=== PATIENT | female | born 1950 | race Caucasian/White ===

== ENCOUNTER 2016-12-17 11:52 | Day surgery (SDC) | payer BC ==
[~2016-12-17] VITALS: Ht 167.6 cm; Wt 133.1 kg
[~2016-12-17 11:52] MED LIST: CEPH-375 PO; LOSA25TA5 PO; LOSA50TA6 PO; METF10002 PO; SITA50TA PO
[2016-12-17] MEDS ORDERED: LACTATED RINGERS 1,000 ML IV SCH (12:28)
[2016-12-17] MEDS ORDERED: LOVA40TA2 PO (12:30)
[2016-12-17] MEDS ORDERED: LIDOCAINE 1%, 2ML SQ PRN (12:30)
[2016-12-17] MEDS ORDERED: DIPH25CA61 PO (12:30)
[2016-12-17] MEDS ORDERED: LIDOCAINE 1%, 2ML ONE (12:37)
[2016-12-17] MEDS ORDERED: FENTANYL PF 250 MCG/5ML ONE (13:51)
[2016-12-17] MEDS ORDERED: MIDAZOLAM 1 MG/ML, 2ML ONE (13:51)
[2016-12-17] MEDS ORDERED: KETOROLAC 30 MG/1 ML ONE (14:20)
[2016-12-17] MEDS ORDERED: PROPOFOL 10 MG/ML, 20ML ONE (14:20)
[2016-12-17] MEDS ORDERED: METOPROLOL 1 MG/ML, 5ML ONE (14:20)
[2016-12-17] MEDS ORDERED: KETAMINE 10 MG/ML, 20ML ONE (14:20)
[2016-12-17] MEDS ORDERED: ROCURONIUM 10 MG/ML ONE (14:20)
[2016-12-17] MEDS ORDERED: METOCLOPRAMIDE 5 MG/ML, 2ML ONE (14:20)
[2016-12-17] MEDS ORDERED: ONDANSETRON 2MG/ML, 2ML ONE (14:20)
[2016-12-17] MEDS ORDERED: OMNIPAQUE 350 MG/ML, 50 ML BOTTLE ONE (14:30)
[2016-12-17] MEDS ORDERED: MIDAZOLAM 1 MG/ML, 2ML IV PRN (15:00)
[2016-12-17] MEDS ORDERED: hydrALAzine 20 MG/ML, 1ML IV PRN (15:00)
[2016-12-17] MEDS ORDERED: HYDROmorphone 1 MG/ML, 1ML IV PRN (15:00)
[2016-12-17] MEDS ORDERED: LABETALOL 5MG/ML, 20ML IV PRN (15:00)
[2016-12-17] MEDS ORDERED: MEPERIDINE/PF 25MG/0.5ML IVPush PRN (15:00)
[2016-12-17] MEDS ORDERED: ACETAMINOPHEN 325 MG TABLET PO PRN (15:00)
[2016-12-17] MEDS ORDERED: FENTANYL PF 100 MCG/2ML IV PRN (15:00)
[2016-12-17] MEDS ORDERED: HYDROmorphone 1 MG/ML, 1ML ONE (15:04)
[2016-12-17] MEDS ORDERED: PROMETHAZINE 25 MG/ML, 1ML IV PRN (16:00)
[2016-12-17] MEDS ORDERED: ONDANSETRON 2MG/ML, 2ML IV PRN (16:00)
[2016-12-17] MEDS ORDERED: KETOROLAC 30 MG/1 ML IV PRN (16:00)
[2016-12-17] MEDS ORDERED: OXYcodone 5 MG/5 ML ORAL.SOL UDC PO PRN (16:00)
[2016-12-17] MEDS ORDERED: INSULIN REGULAR 100 UNITS/ML, 3ML VIAL SQ-INSULIN SCH (16:00)
[2016-12-17] MEDS ORDERED: OXYcodone/APAP 5/325MG TABLET PO PRN (16:00)
[2016-12-17] MEDS ORDERED: ONDANSETRON 2MG/ML, 2ML IVPush PRN (16:00)
== END 2016-12-17 19:00 ==
LOC: OUT 11:52
PROVIDERS: ATTEND Urology
DX: N20.0 Calculus of kidney (principal); I10 Essential (primary) hypertension; Z87.39 Personal history of other diseases of the musculoskeletal system and connective tissue; Z91.018 Allergy to other foods
CPT/HCPCS: 52356; 74420; 82360; 82962; 88300; C1758; C1769; C2617; J1170; J1885; J2250; J2405; J2704; J2765; J3010; J3490; J7120; Q9967